=== PATIENT | female | born 1970 | race Caucasian/White ===

== ENCOUNTER 2023-11-14 10:49 | Emergency (ER) | payer OTHER, SELFPAY ==
[2023-11-14] VITALS (15 sets, daily range): BP systolic 81–115; BP diastolic 52–87; PULSE 70–85; RESP 14–23; TEMP 36.4–36.7; O2SAT 98–100
--- NOTE | ~2023-11-14 | CT_ITS ---
EXAMINATION: CT abdomen pelvis w con DATE: 11/14/2023 11:55 INDICATION: Abdominal pain post recent hernia repair surgery TECHNIQUE: Computed tomography (CT) of the abdomen and pelvis was performed with 100 mL Omnipaque-350 intravenous contrast. Automated exposure control and iterative reconstruction technique were employe d. The dose-length product was 1642.13 mGy-cm. COMPARISON: None FINDINGS: Minimal dependent atelectasis in the right lower lobe. Likely benign 2 mm subpleural nodule at the po sterior left lower lobe. Heart size is normal. No pericardial or pleural effusion. Small sliding-type hiatal hernia. Cholecystectomy clips the gallbladder fossa. Postoperative change of prior ventral, l ikely umbilical hernia repair with several surgical clips along the anterior abdominal wall. There is a 9.2 x 3.6 x 8.1 cm relatively low-attenuation fluid collection with small amount of gas in the ove rlying subcutaneous tissues. There is a significantly larger and heterogeneous higher attenuation ext raperitoneal hematoma along the deep margin of the anterior abdominal wall which measures 30 cm crani ocaudally and 18.6 x 8.5 cm in maximal transaxial dimensions. Serpiginous pattern of high attenuation active contrast extravasation is seen within the hematoma. There is moderate colonic diverticulosis with a sigmoid predominance without adjacent inflammatory change to suggest diverticulitis. Small bow el and appendix are normal. Bladder is normal. The uterus is not identified and has likely been surgi kaycee resected. There is a small the amount of hemoperitoneum at the uterine fossa. Additional small amount of hemoperitoneum along the anterior margin of the liver. No pathologically enlarged abdominal or pelvic lymphadenopathy. IMPRESSION: 1. 30 x 18.6 x 8.5 cm extraperitoneal hematoma along the deep margin of the right anterior abdominal wall with some active contrast extravasation. 2. Small amount of perihepatic and deep pelvic hemoperitoneum.. 3. Small sliding-type hiatal hernia. Reviewed, dictated and finalized at location A. IMPRESSION: 1. 30 x 18.6 x 8.5 cm extraperitoneal hematoma along the deep margin of the rig ht anterior abdominal wall with some active contrast extravasation. 2. Small amount of perihepatic and deep pelvic hemoperitoneum.. 3. Small sliding-type hiatal hernia.
--- NOTE | 2023-11-14 11:19 | ED.GENADULT ---
HPI - General Adult General Chief complaint: Recheck/Abnormal Lab/Rx Stated complaint: post-op complications Time Seen by Provider: 11/14/23 10:54 History of Present Illness HPI narrative: Patient is a 53-year-old female who presents to the emergency department this morning complaining of right lower quadrant abdominal pain that started this morning. Patient recently had surgery a [facility] on Thursday where she had an abdominal hernia repaired laparoscopically. Patient states that she has been doing well since then but today woke up with some cramping in her right lower quadrant. Initially, patient states that she felt as though it was gas but the pain persisted and got worse so she decided to come to the emergency depart further evaluation. Upon EMS arrival, they did state that the patient had a systolic blood pressure in the 70s and heart rate in the 50s. She was administered 300 cc IV fluid bolus. Upon our arrival, patient's blood pressure noted to be 115/69 with a heart rate of 79. Patient is resting comfortably, states that her pain is a 2-3 on the pain scale. Denies any additional symptoms or concerns. Denies any fevers at home. Related Data Home Medications Medication Instructions Recorded Confirmed bupropion HCl 300 mg 24 hr tablet, 300 mg PO QAM 07/05/20 10/22/23 extended release calcium carbonate 600 mg-vitamin cap PO 07/05/20 10/22/23 D3 5 mcg (200 unit) capsule (Calcium 600 + D(3)) cholecalciferol (vitamin D3) 125 125 mcg PO DAILY 07/05/20 10/22/23 mcg (5,000 unit) capsule omeprazole 20 mg capsule,delayed 20 mg PO DAILY 07/05/20 10/22/23 release apixaban 5 mg tablet (Eliquis) 5 mg PO BID 07/11/21 10/22/23 atorvastatin 20 mg tablet 20 mg PO DAILY 07/11/21 10/22/23 metoprolol succinate 25 mg 12.5 mg PO DAILY 07/11/21 10/22/23 tablet,extended release 24 hr meloxicam 15 mg tablet 15 mg PO DAILY 08/07/22 10/22/23 amlodipine 5 mg tablet 5 mg PO DAILY 10/22/23 10/22/23 bupropion HCl 150 mg 24 hr tablet, 150 mg PO QAM 10/22/23 10/22/23 extended release clobetasol 0.05 % topical cream 1 applic topical DAILY 10/22/23 10/22/23 metoprolol tartrate 50 mg tablet 50 mg PO DAILY 10/22/23 10/22/23 topiramate 25 mg tablet 25 mg PO DAILY 10/22/23 10/22/23 Allergies Allergy/AdvReac Type Severity Reaction Status Date / Time erythromycin base AdvReac Unknown GI upset Verified 11/14/23 12:29 Review of Systems Review of Systems: All systems are reviewed and are negative unless stated otherwise in the HPI. PMFSH Past Medical History Medical History Depression Factor V Leiden Methylenetetrahydrofolate reductase (MTHFR) deficiency Vaginal delivery x 2 Surgical History Surgical History History of cholecystectomy History of dilation and curettage History of endometrial ablation History of total hysterectomy Family History Family History Mother Family history of malignant neoplasm of breast in first degree relative, Onset Age: 45 Social History Social History Smoking status: Never smoker Alcohol intake: current Substance use: never Substance use type: does not use Lack of Transportation: No Lack of Food: Never True Current Housing: I Have Housing Concerned About Future Housing: No Difficulty Paying Gas/Electric Bills: No Difficulty Paying for Meds: No Currently Unemployed: No Education: High School Diploma/GED Difficulty w/ Childcare or Family Care: No Exam Narrative: General: Alert, awake, afebrile, in no acute distress, pale and diaphoretic. HEENT: PERRL, no rhinorrhea, no post nasal drip, oropharynx clear. Cardiovascular: Regular rate and rhythm, no murmurs, rubs or gallops, no peripheral edema. Respiratory: Clear to auscultation bilaterally, no
[2023-11-14 11:20] LABS: Basophils Absolute Auto 0.1 K/mm3 (0.0-0.1); Basophils Percent Auto 0.8 % (0.2-1.2); Eosinophils Absolute Auto 0.4 K/mm3 (0-0.3); Eosinophils Percent Auto 4.6 % (0-4.4); Hematocrit 36.2 % (37.0-47.0); Hemoglobin 11.9 g/dL (12.0-15.0); Immature Granulocyte Absolute 0.05 K/mm3 (0.00-0.031); Immature Granulocyte Percent A 0.6 % (0-0.5); Lymphocytes Absolute Auto 2.27 K/mm3 (0.9-3.2); Lymphocytes Percent Auto 26.2 % (18.3-44.2); Mean Corpuscular HGB Conc 32.9 g/dl (32-36); Mean Corpuscular Hemoglobin 30.7 pg (26-34); Mean Corpuscular Volume 93.3 fl (80-100); Mean Platelet Volume 10.3 fl (7.4-10.4); Monocytes Absolute Auto 0.6 K/mm3 (0.1-0.6); Monocytes Percent Auto 7.4 % (2.6-8.5); Neutrophils Absolute Auto 5.3 K/mm3 (1.3-6.7); Neutrophils Percent Auto 60.4 % (45.5-73.1); Platelet Count Result 242 k/mm3 (150-375); Red Blood Count 3.88 M/mm3 (4.2-5.4); Red Cell Distribution Width 12.2 % (11.5-14.5); White Blood Count 8.7 K/mm3 (4.5-10.0)
[2023-11-14 11:30] LABS: Alanine Aminotransferase 40 U/L (6-35); Albumin Level 3.5 g/dL (3.5-5.1); Alkaline Phosphatase 57 U/L (38-126); Anion Gap 9 mmol/L (4-12); Aspartate Amino Transferase 28 U/L (14-36); Bilirubin,Total 1.3 mg/dL (0.2-1.3); Blood Urea Nitrogen 21 mg/dL (7-17); Calcium 8.7 mg/dL (8.4-10.2); Carbon Dioxide 18 mmol/L (22-30); Chloride 111 mmol/L (98-107); Estimated CRCL calculation 73 ml/min; Estimated Glomerular Filt Rate 52; Glucose 175 mg/dL (65-110); Lipase 129 U/L (23-300); Potassium 4.3 mmol/L (3.4-5.0); Sodium 138 mmol/L (137-145)
[2023-11-14 11:31] LABS: Lactic Acid Reflex 2.2 mmol/L (0.7-2.0)
[2023-11-14] MEDS: TUBING, BLOOD SET 1 EACH XX (12:42)
[2023-11-14] MEDS: SODIUM CHLORIDE 0.9% IV 250 ML 30 ML IV CONT (12:42)
[2023-11-14 13:49] LABS: INR 1.4; Prothrombin Time 17.5 Seconds (11.1-14.7)
[2023-11-14 13:50] LABS: Partial Thromboplastin Time 25.6 Seconds (22.3-36.8)
[2023-11-14 14:18] LABS: Reflex Lactic Acid Yes or No Add Lactic
[2023-11-14] MEDS: HUMAN PROTHROMBIN COMPLEX(PCC) 5,000 UNITS in PREMIXIV 0 ML 504 UNITS IV CONT (14:40)
--- NOTE | 2023-11-14 14:43 | PC.NURSE ---
To Sunita Pineda. Condition stable.
== END 2023-11-14 14:45 | disposition short-term general hospital (02) ==
PROVIDERS: Emergency Medicine; Emergency Provider Emergency Medicine
DX: K66.1 Hemoperitoneum (principal); K68.3 Retroperitoneal hematoma; R10.31 Right lower quadrant pain; F32.A Depression, unspecified; D68.51 Activated protein C resistance; E72.12 Methylenetetrahydrofolate reductase deficiency
CPT/HCPCS: 36415; 36430; 74177; 80053; 83605; 83690; 85025; 85610; 85730; 86850; 86900; 86901; 86920; 87040; 96361; 96374; 99285; J7030; J7040; J7050; J7168; P9016; Q9967